=== PATIENT | male | born 2000 | race Caucasian/White ===

== ENCOUNTER 2022-01-30 15:44 | Emergency (ER) | payer OTHER, SELFPAY ==
--- NOTE | 2022-01-30 16:09 | ED.URI ---
HPI - URI/Sore Throat General Chief Complaint: Upper Respiratory Infection Stated Complaint: sorethroat,headache Time Seen by Provider: 01/30/22 16:02 Source: patient, family (mom), RN notes reviewed and old records reviewed Mode of arrival: ambulatory Limitations: no limitations History of Present Illness HPI Narrative: 21-year-old male presents to the [facility] with complaints of a sore throat and headache since yesterday. Had body aches that started today. Denies fevers. Was seen at [facility] yesterday had a rapid COVID done. Reports COVID exposure 5 days ago Onset (ago): day(s) (2) Related Data Allergies Allergy/AdvReac Type Severity Reaction Status Date / Time No Known Allergies Allergy Verified 01/30/22 15:58 Review of Systems Review of Systems: All systems reviewed & are unremarkable except as noted in HPI and below Constitutional: Constitutional: Reports as per HPI (Body aches), Denies chills, Reports fatigue and Denies fever(s) Eyes: Eyes: Reports no additional eye complaints ENT: Reports as per HPI and Reports sore throat Cardiovascular: Cardiovascular: Reports no additional cardiovascular complaints Respiratory: Respiratory: Reports no additional respiratory complaints Gastrointestinal: Gastrointestinal: Reports no additional gastrointestinal complaints Musculoskeletal: Musculoskeletal: Reports no additional musculoskeletal complaints Integumentary/Breasts: Skin/Breast: Reports system reviewed and no additional complaints, except as docu Neurologic: Reports as per HPI and Reports headache(s) Psychiatric: Psychiatric: Reports no additional psychiatric complaints Allergic/Immunologic: Allergic/Immunologic: Reports no additional allergic/immunologic complaints PMFSH Past Medical History Medical History (Updated 01/30/22 @ 19:15 by Criss Perkins APRN) Asthma Family History Family History Mother Depression Grandparent Family history of cardiovascular disease Social History Social History Smoking status: Never smoker Second hand tobacco smoke exposure: No Alcohol intake: never Comments At the time of my signature, I reviewed and agree with the nursing past medical, surgical, social, and family history. There is no relevant family history pertinent to the patient complaint. Exam Const: General: healthy appearing, no acute distress and alert Nutritional Appearance: well nourished Orientation/consciousness: patient oriented x3 Limitations: no limitations HENMT: Head: normal to inspection Ears: external ears normal and Abnormal EAC present cerumen impaction bilateral Throat: posterior oropharynx normal and uvula midline Eyes: General: appearance normal, both eyes and all related structures Pupils: Equal, round and reactive pupils present Neck: Neck: normal visual inspection, no lymphadenopathy and no meningeal signs Chest: Chest palpation & inspection: normal inspection of the chest Resp: Effort & Inspection: normal respiratory effort and no use of accessory muscles Auscultation: clear to auscultation bilaterally, no crackles, no rales, no rhonchi and no wheezes Cardio: Rate: regular rate Rhythm: regular rhythm Back/Spine/Pelvis: Cervical Spine: normal cervical lordosis Thoracic/Lumbar Spine: thoracic and lumbar spine normal to inspection Skin: General skin exam: normal color Rashes: no rashes Wounds: no wounds Neuro: General: patient oriented x3, moves all extremities, no meningeal signs and no focal motor deficits Cranial nerves: Yes Equal, round and reactive pupils present Speech: normal speech Gait exam (Neuro): Normal gait present Extrem: General: normal to inspection, full ROM and capillary refill normal Psych: Appearance: grossly normal and well kempt Mental Status: mental status grossly normal Affect: normal affect Attitude: cooperative
[2022-01-30 16:25] VITALS: BP 110/79; PULSE 91; RESP 16; TEMP 37.4; O2SAT 100
[2022-01-30 21:30] LABS: SARS-CoV-2 RNA PCR Positive
== END 2022-01-30 16:50 | disposition home or self-care (01) ==
PROVIDERS: Emergency Provider Nurse Practitioner; PCP Family Medicine
DX: U07.1 COVID-19 (principal); H61.23 Impacted cerumen, bilateral; J45.909 Unspecified asthma, uncomplicated
CPT/HCPCS: 69210; 87081; 87804; 87880; 99213; C9803; G0463; U0003; U0005

== ENCOUNTER 2022-08-28 18:01 | Emergency (ER) | payer OTHER, SELFPAY ==
[2022-08-28 18:10] VITALS: BP 126/76; PULSE 90; RESP 18; TEMP 36.9; O2SAT 100
--- NOTE | 2022-08-28 19:00 | ED.MALEGU ---
HPI - Male Genitourinary General Chief complaint: Urogenital-Male Stated complaint: Male Urogenital Time Seen by Provider: 08/28/22 18:55 Source: patient Mode of arrival: ambulatory Limitations: no limitations History of Present Illness HPI Narrative: Patient presents today stating, ?I am not sure if I have a UTI. I don't feel like my bladder is emptying all the way. Denies dysuria, hematuria, penile discharge, scrotal or testicular pain, abdominal pain, back pain. He urinated fairly shortly prior to arrival and has not been able to provide us with a urine sample thus far, but has been drinking water. Related Data Home Medications Medication Instructions Recorded Confirmed No Home Medications 08/28/22 08/28/22 Allergies Allergy/AdvReac Type Severity Reaction Status Date / Time No Known Allergies Allergy Verified 08/28/22 18:02 Review of Systems Review of Systems: CONSTITUTIONAL: Denies body aches, fever, chills, or sweats. EYES: Denies visual changes, redness, or discharge. ENT: Denies rhinorrhea, congestion, sore throat, or otalgia. CARDIOVASCULAR: Denies chest pain, palpitations, or edema. RESPIRATORY: Denies cough or dyspnea. GASTROINTESTINAL: Denies abdominal pain, nausea, vomiting, or diarrhea. GENITOURINARY: Denies dysuria or hematuria.+ unable to empty bladder fully SKIN: Denies rash, itching, or wounds. MUSCULOSKELETAL: Denies back pain, joint pain, or myalgia. NEUROLOGIC: Denies headache, numbness, tingling, or weakness. PSYCH: Denies depression or anxiety. [facility] Past Medical History Medical History (Updated 08/28/22 @ 19:29 by Evie Hong, CLINICAL PSYCHOLOGY PROFESSOR, ) Asthma Family History Family History Mother Depression Grandparent Family history of cardiovascular disease Social History Social History Smoking status: Never smoker Second hand tobacco smoke exposure: No Alcohol intake: never Comments At time of signature, I have reviewed and agree with nursing past medical, surgical, social and family history unless otherwise noted. Please see nursing chart for further information. There is no relevant family history pertinent to the presenting complaint Exam Narrative: GENERAL: Well-appearing, well-nourished, and in no acute distress. HEAD: Normocephalic, atraumatic. EYES: EOMI. No redness or drainage. Conjunctivae normal. ENT: Mucous membranes pink and moist. NECK: Normal AROM. CHEST: No respiratory distress. Clear to auscultation. HEART: Regular rate and rhythm. No murmur appreciated. Normal peripheral pulses. ABDOMEN: Soft, nontender, nondistended, normal active bowel sounds. -CVAT MUSCULOSKELETAL: No bony tenderness. EXTREMITIES: Normal range of motion. No edema. SKIN: Warm, dry, no rash. Capillary refill normal. Normal skin turgor. NEURO: No focal deficits. Alert and oriented x3. Gait steady. PSYCH: Normal affect. No signs of depression or anxiety. Course Course Emergency Course: 1908-continue to wait for patient to provide urine sample. He is drinking water. Level of Care: Express Care Visit Vital Signs Vital signs: Vital Signs Temperature 98.5 F 08/28/22 18:10 Pulse Rate 90 08/28/22 18:10 Respiratory Rate 18 08/28/22 18:10 Blood Pressure 126/76 08/28/22 18:10 Pulse Oximetry 100 08/28/22 18:10 Oxygen Delivery Room Air 08/28/22 18:10 Temperature 98.5 F 08/28/22 18:10 Pulse Rate 90 08/28/22 18:10 Respiratory Rate 18 08/28/22 18:10 Blood Pressure 126/76 08/28/22 18:10 Pulse Oximetry 100 08/28/22 18:10 Oxygen Delivery Room Air 08/28/22 18:10 Reviewed. Pt has been instructed to follow up with his PCP regarding his elevated blood pressure today. MDM - Male Genitourinary MDM Narrative Medical decision making narrative: Urine negative for infection. Instructed patient to drink more water. Patient st
== END 2022-08-28 19:30 | disposition home or self-care (01) ==
PROVIDERS: Emergency Provider Nurse Practitioner; PCP Family Medicine
DX: Z71.1 Person with feared health complaint in whom no diagnosis is made (principal); J45.909 Unspecified asthma, uncomplicated
CPT/HCPCS: 81003; 99212; G0463

== ENCOUNTER 2022-08-30 13:57 | Emergency (ER) | payer OTHER, SELFPAY ==
[2022-08-30 14:24] VITALS: BP 130/81; PULSE 95; RESP 18; TEMP 36.8; O2SAT 99
--- NOTE | 2022-08-30 14:27 | ED.MALEGU ---
HPI - Male Genitourinary General Chief complaint: Urogenital-Male Stated complaint: uti complaint Time Seen by Provider: 08/30/22 14:35 Source: patient, RN notes reviewed and old records reviewed Mode of arrival: ambulatory Limitations: no limitations History of Present Illness HPI Narrative: 21-year-old male returns to the [facility] after being evaluated 2 days ago. Patient states that he still feels like he cannot empty his bladder. denies penile discharge. No nausea or vomit denies testicular pain. Denies abdominal pain. Reports lower back discomfort today. Has not taken anything for his symptoms. Has not followed up with primary care provider. Onset (ago): day(s) (3) Related Data Home Medications Medication Instructions Recorded Confirmed No Home Medications 08/28/22 08/28/22 Allergies Allergy/AdvReac Type Severity Reaction Status Date / Time No Known Allergies Allergy Verified 08/28/22 18:02 Review of Systems Review of Systems: All systems reviewed & are unremarkable except as noted in HPI and below Constitutional: Constitutional: Reports no additional constitutional complaints Eyes: Eyes: Reports no additional eye complaints ENT: Reports system reviewed and no additional complaints, except as documented Cardiovascular: Cardiovascular: Reports no additional cardiovascular complaints, Denies chest pain and Denies dyspnea Respiratory: Respiratory: Reports no additional respiratory complaints, Denies chest congestion, Denies cough and Denies dyspnea Gastrointestinal: Gastrointestinal: Reports no additional gastrointestinal complaints, Denies abdominal pain, Denies nausea and Denies vomiting Genitourinary: Genitourinary: Reports as per HPI, Denies hematuria, Denies oliguria, Denies dysuria, Denies penile discharge, Denies testicular pain, Denies urinary frequency and Denies urinary incontinence Musculoskeletal: Musculoskeletal: Reports no additional musculoskeletal complaints Integumentary/Breasts: Skin/Breast: Reports system reviewed and no additional complaints, except as docu Neurologic: Reports system reviewed and no additional complaints, except as documented Psychiatric: Psychiatric: Reports no additional psychiatric complaints Allergic/Immunologic: Allergic/Immunologic: Reports no additional allergic/immunologic complaints PMFSH Past Medical History Medical History Asthma Family History Family History Mother Depression Grandparent Family history of cardiovascular disease Social History Social History Smoking status: Never smoker Second hand tobacco smoke exposure: No Alcohol intake: never Comments At the time of my signature, I reviewed and agree with the nursing past medical, surgical, social, and family history. There is no relevant family history pertinent to the patient complaint. Exam Const: General: cooperative, healthy appearing, comfortable, no acute distress, well developed, alert and well nourished Nutritional Appearance: well nourished Orientation/consciousness: patient oriented x3 Limitations: no limitations HENMT: Head: normal to inspection Ears: hearing grossly normal bilaterally and external ears normal Face/Nose/Sinus: Normal external nose present, Normal nares present, Normal nasal mucous membranes and turbinates present and normal facial exam Face and sinus: normal facial exam Mouth: Yes Normal oral and palatal mucosa present, Yes lip normal and Yes moist mucous membranes Eyes: General: appearance normal, both eyes and all related structures Alignment and Position: alignment normal Periorbital: periorbital findings normal Conjunctivae: conjunctivae normal Pupils: Equal, round and reactive pupils present EOM: EOMs intact bilaterally Neck: Neck: normal visual inspection, full ROM, no
== END 2022-08-30 15:17 | disposition home or self-care (01) ==
PROVIDERS: Emergency Provider Nurse Practitioner; PCP Family Medicine
DX: Z71.1 Person with feared health complaint in whom no diagnosis is made (principal); J45.909 Unspecified asthma, uncomplicated
CPT/HCPCS: 81003; 99212; G0463

== ENCOUNTER 2023-06-23 17:20 | Emergency (ER) | payer OTHER, SELFPAY ==
[2023-06-23 17:24] VITALS: BP 115/70; PULSE 92; RESP 16; TEMP 36.9; O2SAT 100
--- NOTE | 2023-06-23 17:45 | ED.NAVMDI ---
HPI - Nausea/Vomiting/Diarrhea General Chief complaint: Nausea/Vomiting/Diarrhea Stated complaint: Nausea,Vomiting,Body Aches Time Seen by Provider: 06/23/23 17:34 Source: patient and RN notes reviewed Mode of arrival: ambulatory Limitations: no limitations History of Present Illness HPI Narrative: Patient presents today complaining of nausea and vomiting since this morning with body aches that started this afternoon. Patient has vomited 3-4 times today, last was just prior to arrival. He has been able to keep down a small amount of water after his last vomiting episode. Denies fever, cough or congestion, abdominal pain, diarrhea. Mother was diagnosed with influenza late last week and patient had exposure to her yesterday. He has tried no [id number] medication for symptoms prior to arrival. Related Data Allergies Allergy/AdvReac Type Severity Reaction Status Date / Time No Known Allergies Allergy Verified 06/23/23 17:22 Review of Systems Review of Systems: CONSTITUTIONAL: Denies fever, chills, or sweats.+ body aches EYES: Denies visual changes, redness, or discharge. ENT: Denies rhinorrhea, congestion, sore throat, or otalgia. CARDIOVASCULAR: Denies chest pain, palpitations, or edema. RESPIRATORY: Denies cough or dyspnea. GASTROINTESTINAL: Denies abdominal pain, or diarrhea.+ nausea and vomiting GENITOURINARY: Denies dysuria or hematuria. SKIN: Denies rash, itching, or wounds. MUSCULOSKELETAL: Denies back pain, joint pain, or myalgia. NEUROLOGIC: Denies headache, numbness, tingling, or weakness. PSYCH: Denies depression or anxiety. [facility] Past Medical History Medical History (Updated 06/23/23 @ 17:52 by Evie Hong, WELL PULLER, ) Asthma Family History Family History Mother Depression Grandparent Family history of cardiovascular disease Social History Social History Smoking status: Never smoker Second hand tobacco smoke exposure: No Alcohol intake: never Substance use: never Lack of Transportation: No Lack of Food: Never True Current Housing: I Have Housing Concerned About Future Housing: No Difficulty Paying Gas/Electric Bills: No Difficulty Paying for Meds: No Currently Unemployed: No Education: Decline to Answer Difficulty w/ Childcare or Family Care: No Living arrangements: with family Occupation/Education: occupation Gender identity (if verbalized by the patient): Male Comments At time of signature, I have reviewed and agree with nursing past medical, surgical, social and family history unless otherwise noted. Please see nursing chart for further information. There is no relevant family history pertinent to the presenting complaint Exam Narrative: GENERAL: Well-appearing, well-nourished, and in no acute distress. HEAD: Normocephalic, atraumatic. EYES: EOMI. No redness or drainage. Conjunctivae normal. ENT: Mucous membranes pink and moist. NECK: Normal AROM. Supple. No lymphadenopathy. CHEST: No respiratory distress. Clear to auscultation. HEART: Regular rate and rhythm. No murmur appreciated. Normal peripheral pulses. ABDOMEN: Soft, nontender, nondistended, normal active bowel sounds. EXTREMITIES: Normal range of motion. No edema. SKIN: Warm, dry, no rash. Capillary refill normal. Normal skin turgor. NEURO: No focal deficits. Alert and oriented x3. Gait steady. PSYCH: Normal affect. No signs of depression or anxiety. Course Course Level of Care: Express Care Visit Vital Signs Vital signs: Vital Signs Temperature 98.4 F 06/23/23 17:24 Pulse Rate 92 06/23/23 17:24 Respiratory Rate 16 06/23/23 17:24 Blood Pressure 115/70 06/23/23 17:24 Pulse Oximetry 100 06/23/23 17:24 Oxygen Delivery Room Air 06/23/23 17:24 Temperature 98.4 F 06/23/23 17:24 Pulse Rate 92 06/23/23 17:24 Respirat
== END 2023-06-23 17:58 | disposition home or self-care (01) ==
PROVIDERS: Emergency Provider Nurse Practitioner; PCP Family Medicine
DX: R11.2 Nausea with vomiting, unspecified (principal); J45.909 Unspecified asthma, uncomplicated
CPT/HCPCS: 87804; 99213; G0463